=== PATIENT | female | born 1940 | race Caucasian/White ===

== ENCOUNTER 2017-09-09 16:03 | Outpatient (CLI) | payer MEDICARE, OTHER ==
[2017-09-09 16:31] LABS: Anion Gap 17 mmol/L (10-20); BUN (Urea Nitrogen) 13 mg/dL (9.8-20.1); Calc. Creatinine Clearance 0 mL/min (70-130); Calcium 9.1 mg/dL (7.8-10.44); Carbon Dioxide 22 mmol/L (23-31); Chloride 106 mmol/L (98-107); Estimated GFR-MDRD 50; Glucose 105 mg/dL (83-110); Potassium 4.3 mmol/L (3.5-5.1); Sodium 141 mmol/L (136-145)
[2017-09-09 16:33] LABS: #Basophils 0.2 thou/uL (0.0-0.2); #Eosinphils 0.1 thou/uL (0.0-0.7); #Lymphocytes 3.8 thou/uL (1.20-3.40); #Monocytes 1.2 thou/uL (0.11-0.59); #Neutrophils 14.1 thou/uL (1.40-6.50); %Basophils 0.9 % (0.0-1.0); %Eosinophils 0.4 % (0.0-10.0); %Lymphocytes 19.8 % (21.0-51.0); %Monocytes 6.2 % (0.0-10.0); %Neutrophils 72.6 % (42.0-75.0); Hemoglobin 14.1 g/dL (12.0-16.0); Mean Corpuscular HGB CONC 32.9 g/dL (32.0-36.0); Mean Corpuscular Hemoglobin 31.2 pg (27.0-31.0); Mean Corpuscular Volume 94.9 fl (81.0-99.0); Mean Platelet Volume 5.6 fL (7.4-10.4); Platelet Count 510 thou/uL (130-400); RBC Distribution Width 12.8 % (11.5-14.5); Red Blood Cell (RBC) Count 4.52 mill/uL (4.20-5.40); White Blood Cell (WBC) Count 19.3 thou/uL (4.8-10.8)
[2017-09-09 16:35] LABS: Bilirubin Negative (Negative); Blood, Urine Negative (Negative); Glucose, Urine (Dipstick) Negative (Negative); Leukocyte Negative (Negative); Nitrite Negative (Negative); Protein, Urine (Dipstick) Trace mg/dL (Neg-Trace); pH, Urine 7.5 (5.0-9.0)
[2017-09-09 16:36] LABS: Bacteria/HPF 1+ HPF (None Seen); Clarity Hazy (Clear); RBC/HPF 0-3 HPF (0-3); WBC/HPF 0-3 HPF (0-3)
== END 2017-09-09 16:04 | disposition home or self-care (01) ==
LOC: MADLABBHPM 16:03
PROVIDERS: ATTEND Family Medicine
DX: N18.9 Chronic kidney disease, unspecified (principal); I47.1 Supraventricular tachycardia; R35.0 Frequency of micturition
CPT/HCPCS: 36415; 80048; 81001; 85025; 87086

== ENCOUNTER 2017-09-09 20:36 | Emergency (ER) | payer MEDICARE, OTHER ==
[~2017-09-09 20:36] MED LIST: Sodium Chloride 0.9% 1,000 ML BAG ONE; Sodium Chloride 0.9% 100 ML BAG ONE; Sodium Chloride 0.9% 500 ML BAG ONE
[2017-09-09] MEDS ORDERED: Azithromycin 500 MG VIAL ONE (21:18)
[2017-09-09] MEDS ORDERED: methylPREDNISolone Sod Succ/PF 125 MG/2 ML VIAL ONE (21:19)
[2017-09-09] MEDS ORDERED: Acetaminophen 500 MG TAB ONE (21:19)
[2017-09-09 21:26] LABS: Anion Gap 18 mmol/L (10-20); BUN (Urea Nitrogen) 14 mg/dL (9.8-20.1); Calc. Creatinine Clearance 0 mL/min (70-130); Calcium 9.3 mg/dL (7.8-10.44); Carbon Dioxide 23 mmol/L (23-31); Chloride 103 mmol/L (98-107); Estimated GFR-MDRD 46; Glucose 96 mg/dL (83-110); Potassium 4.3 mmol/L (3.5-5.1); Sodium 140 mmol/L (136-145)
[2017-09-09 21:35] LABS: Troponin I 0.026 ng/mL (< 0.028)
[2017-09-09 21:41] LABS: Hemoglobin 14.2 g/dL (12.0-16.0); Mean Corpuscular HGB CONC 32.2 g/dL (32.0-36.0); Mean Corpuscular Hemoglobin 30.7 pg (27.0-31.0); Mean Corpuscular Volume 95.3 fl (81.0-99.0); Mean Platelet Volume 5.2 fL (7.4-10.4); Platelet Count 528 thou/uL (130-400); RBC Distribution Width 12.6 % (11.5-14.5); Red Blood Cell (RBC) Count 4.64 mill/uL (4.20-5.40); White Blood Cell (WBC) Count 21.8 thou/uL (4.8-10.8)
--- NOTE | 2017-09-09 21:41 | RAD ---
PORTABLE AP CHEST X-RAY 09/09/17 HISTORY: Dyspnea. COMPARISON: 12/27/15 FINDINGS: Again noted is blunting of the left lateral costophrenic angle similar to the prior study which may b e related to chronic pleural and parenchymal scarring. Lungs are otherwise clear. The cardiac silhoue tte and pulmonary vasculature are within normal limits. Multiple surgical clips again overlie the upp er abdomen. IMPRESSION: 1. No acute cardiopulmonary process. 2. Chronic changes left lung base. POS: [facility]
[2017-09-09 21:42] LABS: Band 4 % (5-11); Neutrophil 70 % (42-75)
[2017-09-09 21:43] LABS: Delete Auto Diff?? YES; Lymphocytes 20 % (21-51); Metamyelocyte 3 % (0-0); Monocytes 3 % (0-10)
[2017-09-09 21:44] LABS: D-Dimer Test 0.54 *mcg/mL (0.27-0.43); PLT Morphology Comment Appears Increased; PTT 27.8 SEC (22.9-36.1); Prothrombin Time 13.5 SEC (12.0-14.7)
== END 2017-09-09 22:40 | disposition short-term general hospital (02) ==
LOC: MADERS 20:36
DX: J44.1 Chronic obstructive pulmonary disease with (acute) exacerbation (principal); D72.829 Elevated white blood cell count, unspecified; I25.2 Old myocardial infarction; Z79.899 Other long term (current) drug therapy
CPT/HCPCS: 36415; 71045; 80048; 81001; 82553; 83605; 83880; 84484; 85025; 85379; 85384; 85610; 85730; 87040; 87086; 93005; 94760; 96361; 96374; 96375; J0456; J2930; J3370; J7050; J7620

== ENCOUNTER 2017-09-22 09:17 | Inpatient (IN) | payer MEDICARE, OTHER ==
[2017-09-22 13:20] LABS: Hemoglobin 13.6 g/dL (12.0-16.0); Mean Corpuscular Hemoglobin 31.7 pg (27.0-31.0); Mean Corpuscular Volume 95.9 fl (81.0-99.0); Mean Platelet Volume 5.8 fL (7.4-10.4); Platelet Count 433 thou/uL (130-400); RBC Distribution Width 12.6 % (11.5-14.5); Red Blood Cell (RBC) Count 4.23 mill/uL (4.20-5.40); White Blood Cell (WBC) Count 21.4 thou/uL (4.8-10.8)
[2017-09-22 13:26] LABS: ALT (SGPT) 14 U/L (8-55); AST (SGOT) 13 U/L (5-34); Albumin 3.6 g/dL (3.4-4.8); Alkaline Phosphatase 71 U/L (40-150); Anion Gap 15 mmol/L (10-20); BUN (Urea Nitrogen) 20 mg/dL (9.8-20.1); Bilirubin, Total 0.4 mg/dL (0.2-1.2); Calc. Creatinine Clearance 37 mL/min (70-130); Calcium 8.7 mg/dL (7.8-10.44); Carbon Dioxide 25 mmol/L (23-31); Chloride 104 mmol/L (98-107); Estimated GFR-MDRD 47; Globulin 2.4 g/dL (2.4-3.5); Glucose 106 mg/dL (83-110); Potassium 3.9 mmol/L (3.5-5.1); Sodium 140 mmol/L (136-145)
[2017-09-22 13:30] LABS: Anisocytosis SLIGHT = 6-15 cells (100X) (0-5/hpf); Eosinophils 1 % (0-10); Lymphocytes 34 % (21-51); MDiff Complete? YES; Manual Diff?? YES; Monocytes 6 % (0-10); Neutrophil 59 % (42-75)
[2017-09-22 13:31] LABS: PLT Morphology Comment Appears Increased
[2017-09-22] MEDS: Benzonatate 100 MG CAP PO SCH ×2 (14:24→21:09)
[2017-09-22] MEDS: Propranolol 10 MG TAB PO SCH (16:50)
[2017-09-22] MEDS ORDERED: Non-Formulary Item 1 EACH (Budesonide-Formoterol [Symbicort 160-4.5] 1 PUFF) INH SCH (21:00)
[2017-09-22] MEDS: Mometasone/Formoterol 60 PUFF AER INH SCH (21:05)
[2017-09-22] MEDS: Temazepam 15 MG CAP PO SCH (21:08)
[2017-09-22] MEDS: Amitriptyline HCl 25 MG TAB PO SCH (21:08)
[2017-09-23] MEDS: Propranolol 10 MG TAB PO SCH ×5 (00:28→23:45)
[2017-09-23] MEDS: Mometasone/Formoterol 60 PUFF AER INH SCH ×2 (08:11→23:45)
[2017-09-23] MEDS: Benzonatate 100 MG CAP PO SCH ×3 (08:11→21:19)
--- NOTE | 2017-09-23 09:41 | HP ---
DATE OF ADMISSION: 09/22/2017 ATTENDING DOCTOR: Debra Cain M.D. REASON FOR ADMISSION: General weakness/deconditioning post-hospitalization. HISTORY OF PRESENT ILLNESS: Ms. Murphy is a 77-year-old female with significant history of COPD and chronic sinus tachycardia. Patient was recently admitted to [facility] in [place] on 09/09/2017- for acute exacerbation of COPD. This was associated with acute respiratory failure, unspecified whether hypoxia or hypercapnic induced, sinus tachycardia improved with beta liu. Patient was also noted to have a low TSH with normal free T4 and leukocytosis during this admission. After patient was treated appropriately in the hospital, patient was sent home with continuous home O2 therapy, oral and inhaled steroids and oral antibiotic. Patient had completed the oral steroid and oral antibiotic at home. She presented back to the clinic today complaining of general weakness and deconditioning. Patient reports that she stayed with her who serves as primary strategies analyst at home. Reports that she has been having a hard time getting up and out of bed and moving around secondary to general weakness. She and her are having a hard time dealing with her condition at this point as her has chronic medical conditions himself and is unable to help her much She just had a home health evaluation including physical therapy few days ago. The patient states that it does not help much. The patient went to the clinic today requesting for possible placement for rehabilitation. Patient reports that she is still having intermittent shortness of breath and wheezing. She uses her oxygen continuously at home. She reported that she does not have a CPAP as previously stated in the clinic that the home oxygen concentrator that she saw is a different machine. She remains febrile free. No chest pain, chest heaviness, pain with breathing or bloody sputum. PAST MEDICAL HISTORY: 1. COPD, osteoporosis, hyperlipidemia, GERD, insomnia, depression, anxiety, history of DVT to the right leg with PE to the right lung. Pulmonary function tests showed restrictive disorder on 04/25/2011. Episodes of unresponsiveness, etiology TIA, stroke, seizure, 02/23/2007. 2. Postherpetic neuralgia. 3. Unspecified transient cerebral ischemia. 4. Edema. 5. Had consulted with shoe repair cobbler, Dr. Ghosh for EKG showing poor R-wave progression in anterior leads. MPI showed normal myocardial perfusion with no evidence of ischemia and normal wall motion 12/10/2015. 6. PAD status post bilateral iliac angiography with HAND PASTER and stent placement, claudication in her left lower extremity. 7. Hypoxemia, requiring home O2 therapy. PAST SURGICAL HISTORY: 1. Fracture of the right wrist requiring ORIF on 06/2011, colonoscopy 2003, appendectomy. 2. Hysterectomy. 3. 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 4. Surgery for GERD, postop she developed respiratory failure and was on respirator for several days. 5. Foot surgery. 6. Cholecystectomy. 7. Open hernia repair. FAMILY HISTORY: Father , 100 years old with COPD. Spouse alive, 84 years old. Mother at 95 years old with parkinsonism Alzheimer's. Sisters and healthy, 2 sons healthy. SOCIAL HISTORY: Patient is and lives with her . HABITS: Former smoker for more than 20 years. Have not been smoking for more than 20 years. Denies alcohol intake. Denies illicit drug use. ALLERGIES: 1. PENICILLIN, LEVAQUIN, DARVOCET, TESSALON PERLES, which upsets her stomach. Of note, patient is currently on TESSALON PERLES without side effects. 2. CEFTIN allergy. 3. LORAZEPAM, sleepwalking. HOSPITALIZATIONS: 1. COPD with acute exacerbation on 09/09/2017-09/15/2017 at [facility]. 2. COPD with acute exacerbation on 11/18/2009-11/21/2009. 3. Right lower lobe pneumonia with leukocytosis, probable leukemoid reaction on 02/09/2007-02/17/2007. 4. Chronic obstructive pulmonary disease with acute exacerbation on 08/18/2012. MEDICATIONS: Propranolol 10 mg p.o. q.6 hours, amitriptyline 50 mg p.o. at bedtime, temazepam 15 mg p.o. at bedtime, Combivent 20/100 mcg/act aerosol solution 1 puff inhalation 4 times a day as needed, benzonatate 100 mg p.o. t.i.d., Symbicort 160/4.5 mcg/act aerosol inhaler 2 puffs b.i.d., DuoNeb q.4 hours p.r.n., Diflucan 150 mg p.o. once x2. REVIEW OF SYSTEMS: Reports fatigue and general weakness. No fever, no chills, positive loss of appetite. HEENT: No cold symptoms, no ear pain, no sore throat. No sneezing. No acute hearing changes. CARDIOVASCULAR: Denies chest pain, paroxysmal nocturnal dyspnea or edema. Reports dyspnea on exertion and intermittent palpitations. RESPIRATORY: As per HPI. GASTROINTESTINAL: No nausea, vomiting, abdominal pain, diarrhea, rectal bleeding. GENITOURINARY: No dysuria, hematuria, frequency, urgency. SKIN: Reports tender vesicular lesions on the sacral region. Reports history of intermittent herpetic lesions and neuralgia. NEUROLOGIC: Denies confusion, new motor or sensory losses. PSYCHIATRIC: Reports insomnia, anxiety. No hallucinations. No depression. PHYSICAL EXAMINATION: VITAL SIGNS: Blood pressure 132/68, temperature 97.7, pulse 88, respirations 24 , O2 saturation 97% at 2 liters per nasal cannula. Weight 121 pounds, height 4 feet 9 inches. GENERAL: The patient is awake, alert. Chronically ill-looking, elderly, comfortable on exam, not in acute distress. HEENT: Normocephalic, atraumatic. PERRL, intact EOM. Nonicteric sclerae. Oral mucosa is moist. No oral lesions. NECK: Supple. No LAD, no JVD, no bruit. CHEST: Mildly tachypneic. Normal exertion. Nonlabored breathing. LUNGS: Good air movements. Prolonged expiratory phase. No wheezing. No rales , no crackles, no rhonchi. CARDIAC: RRR. Normal S1 and S2. No murmurs. ABDOMEN: Flat, soft, normoactive bowel sounds, nondistended, nontender. No rebound, no guarding. Negative CVA tenderness bilaterally. EXTREMITIES: No edema, no cyanosis. Negative Homans sign. Negative calf tenderness bilaterally. SKIN: Erythematous small papulovesicular lesions noted in confluence at the sacral region. Tender to touch with erythematous base. No pustular lesions. No induration. Good skin turgor, warm. PSYCHIATRIC: Appears calm with appropriate demeanor and affect. ASSESSMENT: 1. Physical deconditioning. 2. Chronic obstructive pulmonary disease. 3. Chronic respiratory failure, O2 requiring. 4. Sinus tachycardia, controlled with Betablocker, pending cardiac evaluation with Dr. Ghosh. 5. Unsteady gait. 6. Herpetic lesions at sacroiliac joint.New onset 7. Anxiety. 8. Chronic insomnia. PLAN: 1. The patient is admitted to Med/Surg for skilled rehabilitation. PT, OT for evaluation and treat for strengthening, balance training and muscle training. 2. We will continue current medications as modified per list. 3. Deep venous thrombosis prophylaxis with compression stockings. 4. Further recommendations depending on the hospital course. 5. Estimated length of stay; 2 to 3 weeks. CODE STATUS: ; patient reports DO NOT RESUSCITATE, DO NOT INTUBATE in the presence of her , who concurs to patient's wishes. DISPOSITION:home with with once appropriate. CUCOD
[2017-09-23] MEDS: Triamcinolone 0.1% Cream 15 GM TUBE TOP SCH ×2 (10:26→23:47)
[2017-09-23] MEDS: Acyclovir 200 mg Capsule PO SCH ×4 (12:14→23:51)
[2017-09-23] MEDS ORDERED: Fluconazole 100 MG TAB PO SCH (13:00)
[2017-09-23] MEDS: Acetaminophen 325 MG TAB PO PRN (19:06)
[2017-09-23] MEDS: Temazepam 15 MG CAP PO SCH (21:18)
[2017-09-23] MEDS: Amitriptyline HCl 25 MG TAB PO SCH (21:18)
[2017-09-24] MEDS: Propranolol 10 MG TAB PO SCH ×3 (05:49→17:35)
[2017-09-24] MEDS: Acyclovir 200 mg Capsule PO SCH ×4 (08:08→20:29)
[2017-09-24] MEDS: Triamcinolone 0.1% Cream 15 GM TUBE TOP SCH ×2 (08:09→20:35)
[2017-09-24] MEDS: Benzonatate 100 MG CAP PO SCH ×3 (08:09→20:30)
[2017-09-24] MEDS: Mometasone/Formoterol 60 PUFF AER INH SCH ×2 (08:09→20:31)
[2017-09-24] MEDS: Acetaminophen 325 MG TAB PO PRN (15:35)
[2017-09-24] MEDS ORDERED: Acetaminophen/Codeine 30-300mg Tablet PO PRN (16:30)
[2017-09-24] MEDS: Amitriptyline HCl 25 MG TAB PO SCH (20:29)
[2017-09-24] MEDS: Gabapentin 100 MG CAP PO SCH (20:30)
[2017-09-24] MEDS: Temazepam 15 MG CAP PO SCH (20:31)
[2017-09-24] MEDS: Acetaminophen/Codeine 30-300mg Tablet PO PRN (22:34)
[2017-09-25] MEDS: Propranolol 10 MG TAB PO SCH ×5 (00:30→23:57)
[2017-09-25] MEDS: Acyclovir 200 mg Capsule PO SCH ×6 (00:30→23:57)
[2017-09-25] MEDS: Acetaminophen/Codeine 30-300mg Tablet PO PRN ×4 (03:14→21:20)
[2017-09-25] MEDS: Mometasone/Formoterol 60 PUFF AER INH SCH ×2 (08:36→21:28)
[2017-09-25] MEDS: Benzonatate 100 MG CAP PO SCH ×3 (08:36→21:23)
[2017-09-25] MEDS: Triamcinolone 0.1% Cream 15 GM TUBE TOP SCH ×2 (08:37→21:28)
[2017-09-25] MEDS ORDERED: diphenhydrAMINE 25 MG CAP PO PRN (19:01)
[2017-09-25] MEDS: Amitriptyline HCl 25 MG TAB PO SCH (21:22)
[2017-09-25] MEDS: Gabapentin 100 MG CAP PO SCH (21:23)
[2017-09-25] MEDS: Temazepam 15 MG CAP PO SCH (21:24)
[2017-09-26] MEDS: Acetaminophen/Codeine 30-300mg Tablet PO PRN ×3 (01:16→15:45)
[2017-09-26] MEDS: Propranolol 10 MG TAB PO SCH ×3 (05:40→17:47)
[2017-09-26] MEDS: Acyclovir 200 mg Capsule PO SCH ×4 (08:32→20:31)
[2017-09-26] MEDS: Mometasone/Formoterol 60 PUFF AER INH SCH ×2 (08:33→20:31)
[2017-09-26] MEDS: Benzonatate 100 MG CAP PO SCH ×3 (08:33→20:25)
[2017-09-26] MEDS: Triamcinolone 0.1% Cream 15 GM TUBE TOP SCH ×2 (08:33→20:33)
[2017-09-26] MEDS: Temazepam 15 MG CAP PO SCH (20:24)
[2017-09-26] MEDS: Amitriptyline HCl 25 MG TAB PO SCH ×2 (20:25→20:26)
[2017-09-26] MEDS: Gabapentin 100 MG CAP PO SCH (20:26)
[2017-09-27] MEDS: Acyclovir 200 mg Capsule PO SCH ×5 (00:03→20:32)
[2017-09-27] MEDS: Propranolol 10 MG TAB PO SCH ×4 (00:03→17:43)
[2017-09-27] MEDS: Acetaminophen/Codeine 30-300mg Tablet PO PRN ×2 (00:10→15:17)
[2017-09-27] MEDS: Mometasone/Formoterol 60 PUFF AER INH SCH ×2 (09:27→20:32)
[2017-09-27] MEDS: Benzonatate 100 MG CAP PO SCH ×3 (09:29→20:33)
[2017-09-27] MEDS: Triamcinolone 0.1% Cream 15 GM TUBE TOP SCH ×2 (09:29→20:34)
[2017-09-27] MEDS: Acetaminophen 325 MG TAB PO PRN (17:46)
[2017-09-27] MEDS: Gabapentin 100 MG CAP PO SCH (20:32)
[2017-09-27] MEDS: Temazepam 15 MG CAP PO SCH (20:32)
[2017-09-28] MEDS: Propranolol 10 MG TAB PO SCH ×5 (00:26→23:40)
[2017-09-28] MEDS: Acyclovir 200 mg Capsule PO SCH ×6 (00:26→23:40)
[2017-09-28] MEDS: Mometasone/Formoterol 60 PUFF AER INH SCH ×2 (08:24→20:19)
[2017-09-28] MEDS: Benzonatate 100 MG CAP PO SCH ×3 (08:25→20:22)
[2017-09-28] MEDS: Triamcinolone 0.1% Cream 15 GM TUBE TOP SCH ×2 (08:26→20:22)
[2017-09-28] MEDS: Gabapentin 100 MG CAP PO SCH (20:16)
[2017-09-28] MEDS: Amitriptyline HCl 25 MG TAB PO SCH (20:16)
[2017-09-28] MEDS: Temazepam 15 MG CAP PO SCH (20:18)
[2017-09-28 21:13] VITALS: BP 146/66
[2017-09-29] MEDS: Propranolol 10 MG TAB PO SCH (05:44)
[2017-09-29] MEDS: Acyclovir 200 mg Capsule PO SCH (08:07)
[2017-09-29] MEDS: Benzonatate 100 MG CAP PO SCH (08:08)
[2017-09-29] MEDS: Mometasone/Formoterol 60 PUFF AER INH SCH (08:09)
[2017-09-29] MEDS: Triamcinolone 0.1% Cream 15 GM TUBE TOP SCH (08:11)
[2017-09-29 10:34] VITALS: TEMP 98.9
--- NOTE | 2017-09-29 21:40 | DIS ---
DATE OF ADMISSION: 09/22/2017 DATE OF DISCHARGE: 09/29/2017 ATTENDING PHYSICIAN: Debra Cain MD REASON FOR ADMISSION: General weakness, deconditioning post-hospitalization. DIAGNOSES: 1. Physical deconditioning. 2. Chronic obstructive pulmonary disease. 3. Chronic respiratory failure, O2 requiring. 4. Sinus tachycardia, controlled with beta liu. 5. Unsteady gait, improved with therapy. 6. Herpetic lesion in sacroiliac joint, improving. 7. Postherpetic neuralgia. 8. Anxiety. 9. Chronic insomnia. 10. History of abnormal TSH with normal Free T4, pending further outpatient evaluation. CONDITION ON DISCHARGE: Stable. DISPOSITION: Home with . HOME MEDICATIONS: 1. Gabapentin 100 mg p.o. at bedtime. 2. Triamcinolone cream b.i.d. to herpetic lesion in sacral area. 3. Temazepam 15 mg p.o. at bedtime. 4. Combivent 20/100 mcg/act aerosol solution 1 puff 4 times a day as needed. 5. Symbicort 160/4.5 mcg aerosol inhaler 2 puffs b.i.d. 6. DuoNeb q.4 hours p.r.n. 7. Amitriptyline 50 mg p.o. at bedtime. 8. Propranolol 10 mg p.o. q.6 hours. DISCHARGE INSTRUCTIONS: 1. Diet: Regular, as tolerated. 2. Activity: To walk with rolling walker at all times. 3. Follow up with Dr. Cain in 1-2 weeks, sooner with concern. 4. Follow up with Dr. Ghosh for sinus tachycardia on 10/30/2017 as previously scheduled. 5. Follow up with pocket maker, Dr. Kovacs, on 10/22/2017 or as previously scheduled for pulmonary care. 6. Previous home health to resume services for senior living, PT, OT to evaluate and treat. HISTORY OF PRESENT ILLNESS AND HOSPITAL COURSE: Ms. Murphy is a very pleasant 77-year-old female with significant history of COPD and chronic sinus tachycardia deemed to be secondary to COPD. The patient was recently admitted to [facility] from 09/09/2017 to 09/15/2017 for acute exacerbation of COPD. This was associated with acute respiratory failure, whether hypoxia or hypercapnic induced, O2 requiring; sinus tachycardia improved with beta liu. The patient went home with oral steroids, oral antibiotic, inhaled steroid, and propranolol. The patient reports that she has been having a hard time dealing with her condition at home as she was generally weak and unable to get up and help herself. She also reports very unsteady gait , now using rolling walker to ambulate. Her is the primary caregiver at home and unable to give the appropriate care as she requires higher level of care. Post-hospitalization,the patient accompanied by went to the clinic asking for rehabilitation The patient agreed to stay in [place] swing bed, thus admitted subsequently. The patient did well with rehabilitation. She was walking 400 feet using the rolling walker prior to discharge. The patient's rehabilitation course was complicated with herpetic lesion noted on the day of admission. Papulovesicular rash was noted in confluence at the sacral region. This was complicated with post-herpetic neuralgia. Pain was reported shooting from the sacral area where the lesions are located radiating to the right medial thigh. Pain is responsive to gabapentin and prn Tylenol#3. On 09/29/2017, the patient reported that she is doing a lot better. Neuralgia was controlled with med. She feels stronger and comfortable to go back home. I spoke to spouse who serves as the primary menagerie caretaker, who is in agreement to the patient's request. Thus, the patient was discharged on 2017 with the recommendation to continue therapy with previous home health. Vital signs prior to discharge: Blood pressure 146/66, temperature 98.9, pulse 86, respirations rate 18, O2 saturation 97% at 2 liters per nasal cannula, weight 121 pounds, height 4 feet 9 inches. Time spent on this discharge in assessing the patient and coordinating care, 32 minutes. KATE
== END 2017-09-29 12:00 | disposition home or self-care (01) | DRG 948 ==
LOC: MADMS 09:17
PROVIDERS: ADMIT Family Medicine; ATTEND Family Medicine
DX: R53.1 Weakness (principal); J96.11 Chronic respiratory failure with hypoxia; Z99.81 Dependence on supplemental oxygen; B02.29 Other postherpetic nervous system involvement; J44.9 Chronic obstructive pulmonary disease, unspecified; R00.0 Tachycardia, unspecified; M81.0 Age-related osteoporosis without current pathological fracture; E78.5 Hyperlipidemia, unspecified; K21.9 Gastro-esophageal reflux disease without esophagitis; G47.00 Insomnia, unspecified; F32.9 Major depressive disorder, single episode, unspecified; F41.9 Anxiety disorder, unspecified; Z86.718 Personal history of other venous thrombosis and embolism; Z86.711 Personal history of pulmonary embolism; Z86.73 Personal history of transient ischemic attack (TIA), and cerebral infarction without residual deficits; Z87.891 Personal history of nicotine dependence; Z88.1 Allergy status to other antibiotic agents; Z88.5 Allergy status to narcotic agent; Z88.0 Allergy status to penicillin; R26.81 Unsteadiness on feet; Z66 Do not resuscitate
CPT/HCPCS: 36415; 80053; 85025; 94640; 94664; G8978-GP-CJ; G8979-GP-CI; G8996-GN-CI; G8997-GN-CI; G8998-GN-CI; J7620

== ENCOUNTER 2017-11-12 17:31 | Outpatient (CLI) | payer MEDICARE, OTHER ==
[2017-11-12 23:40] LABS: Free T4 (Free Thyroxine) 0.87 ng/dL (0.70-1.48)
== END 2017-11-12 17:32 | disposition home or self-care (01) ==
LOC: MADLAB 17:31
PROVIDERS: ATTEND Family Medicine
DX: R79.89 Other specified abnormal findings of blood chemistry (principal)
CPT/HCPCS: 84439; 84443

== ENCOUNTER 2018-02-05 09:39 | Emergency (ER) | payer MEDICARE, OTHER ==
[~2018-02-05 09:39] MED LIST changes: -Sodium Chloride 0.9% 100 ML BAG ONE; -Sodium Chloride 0.9% 500 ML BAG ONE
[2018-02-05] MEDS ORDERED: Azithromycin 500 MG VIAL ONE (11:09)
[2018-02-05] MEDS ORDERED: Dexamethasone 10 MG/ML VIAL ONE (11:09)
[2018-02-05] MEDS ORDERED: methylPREDNISolone Sod Succ/PF 125 MG/2 ML VIAL ONE (11:09)
[2018-02-05] MEDS ORDERED: Ondansetron ODT 4 MG TAB ONE (11:09)
[2018-02-05] MEDS ORDERED: Clindamycin/D5W 600 mg/50 ml Premix Bag ONE (11:09)
[2018-02-05] MEDS ORDERED: Ketorolac Tromethamine 30 MG/ML VIAL ONE (11:09)
[2018-02-05 11:21] LABS: Band 2 % (5-11); Hemoglobin 12.6 g/dL (12.0-16.0); Lymphocytes 19 % (21-51); MDiff Complete? YES; Mean Corpuscular Hemoglobin 29.3 pg (27.0-31.0); Mean Corpuscular Volume 91.6 fL (78.0-98.0); Mean Platelet Volume 6.2 fL (7.4-10.4); Monocytes 5 % (0-10); Neutrophil 74 % (42-75); PLT Morphology Comment Appears Increased; Platelet Count 418 thou/uL (130-400); RBC Distribution Width 12.7 % (11.5-14.5); Red Blood Cell (RBC) Count 4.29 mill/uL (4.20-5.40); White Blood Cell (WBC) Count 32.4 thou/uL (4.8-10.8)
[2018-02-05 11:23] LABS: ALT (SGPT) 16 U/L (8-55); AST (SGOT) 16 U/L (5-34); Albumin 3.7 g/dL (3.4-4.8); Alkaline Phosphatase 123 U/L (40-150); Anion Gap 19 mmol/L (10-20); BUN (Urea Nitrogen) 34 mg/dL (9.8-20.1); Bilirubin, Total 0.4 mg/dL (0.2-1.2); CK (CPK) 155 U/L (29-168); Calc. Creatinine Clearance 0 mL/min (70-130); Calcium 9.3 mg/dL (7.8-10.44); Carbon Dioxide 20 mmol/L (23-31); Chloride 102 mmol/L (98-107); Estimated GFR-MDRD 49; Globulin 3.7 g/dL (2.4-3.5); Glucose 135 mg/dL (83-110); Potassium 4.3 mmol/L (3.5-5.1); Protein, Total 7.4 g/dL (6.0-8.3); Sodium 137 mmol/L (136-145)
[2018-02-05 11:28] LABS: CKMB 1.4 ng/mL (0-6.6); Troponin I Less than 0.010 ng/mL (< 0.028)
[2018-02-05 11:37] LABS: PTT 24.6 SEC (22.9-36.1); Prothrombin Time 13.4 SEC (12.0-14.7)
[2018-02-05 11:45] LABS: D-Dimer Test 1.48 *mcg/mL (0.27-0.43)
--- NOTE | 2018-02-05 12:30 | RAD ---
UPRIGHT PORTABLE CHEST 1 VIEW: HISTORY: A 77-year-old female with a history of shortness of breath. COMPARISON: 11/11/17. FINDINGS: There is rotation to the left. Monitor leads overlie the chest. Overall stable-appearing increased linear and interstitial markings and blunting of the left costophrenic angle. Postsurgical changes i n the left upper quadrant. IMPRESSION: Stable chest with stable blunting of the left costophrenic angle. Rotation to the left. Atheroscler osis of the aorta. No confluent pneumonia or overt edema or other acute process. POS: [facility]
[2018-02-05 13:02] LABS: Bilirubin Small (Negative); Blood, Urine Negative (Negative); Clarity Clear (Clear); Glucose, Urine (Dipstick) Negative (Negative); Leukocyte Negative (Negative); Nitrite Negative (Negative); Protein, Urine (Dipstick) 30 mg/dL (Neg-Trace); pH, Urine 5.5 (5.0-9.0)
[2018-02-05 13:13] LABS: Bacteria/HPF 1+ HPF (None Seen); RBC/HPF 0-3 HPF (0-3); WBC/HPF 0-3 HPF (0-3)
[2018-02-05 13:14] LABS: Crystals/HPF 1+ URIC ACID HPF (Negative); Other Casts/LPF >50 MIXED CASTS LPF (0-3 Hyaline)
--- NOTE | 2018-02-05 13:20 | RAD ---
THREE VIEWS OF THE LEFT RIBS: INDICATION: Chest pain from cough. FINDINGS: There is mild cardiomegaly. There is interstitial prominence likely related to underlying emphysema. There are surgical clips underlying the left hemidiaphragm. No pneumothorax or contusion is eviden t. No definite displaced left-sided rib fractures are evident. IMPRESSION: No displaced left-sided rib fracture. POS: [facility]
== END 2018-02-05 15:17 | disposition short-term general hospital (02) ==
LOC: MADERS 09:39
DX: J06.9 Acute upper respiratory infection, unspecified (principal); R74.9 Abnormal serum enzyme level, unspecified; D72.829 Elevated white blood cell count, unspecified; I25.2 Old myocardial infarction; J44.9 Chronic obstructive pulmonary disease, unspecified; F41.9 Anxiety disorder, unspecified; Z87.891 Personal history of nicotine dependence; Z79.899 Other long term (current) drug therapy
CPT/HCPCS: 36415; 71045; 80053; 81001; 82553; 83605; 83880; 84484; 85025; 85379; 85610; 85730; 87040; 87086; 93005; 94760; 96361; 96365; 96366; 96367; 96375; J0456; J1100; J1885; J2930; J3490; J7050; J7620; Q0162

== ENCOUNTER 2018-02-13 12:54 | Emergency (ER) | payer MEDICARE, OTHER ==
[2018-02-13] MEDS ORDERED: Lorazepam 1 MG TAB ONE (14:21)
== END 2018-02-13 14:55 | disposition home or self-care (01) ==
LOC: MADERS 12:54
DX: F43.0 Acute stress reaction (principal); I25.2 Old myocardial infarction; J44.9 Chronic obstructive pulmonary disease, unspecified; F41.9 Anxiety disorder, unspecified; Z87.891 Personal history of nicotine dependence; Z79.899 Other long term (current) drug therapy
CPT/HCPCS: 99283

== ENCOUNTER 2018-10-21 16:32 | Emergency (ER) | payer MEDICARE, OTHER ==
[2018-10-21 17:14] LABS: #Basophils 0.1 thou/uL (0.0-0.2); #Eosinphils 0.4 thou/uL (0.0-0.7); #Lymphocytes 4.2 thou/uL (1.20-3.40); #Monocytes 0.9 thou/uL (0.11-0.59); #Neutrophils 7.4 thou/uL (1.40-6.50); %Basophils 1.1 % (0.0-1.0); %Eosinophils 3.2 % (0.0-10.0); %Monocytes 6.7 % (0.0-10.0); Hemoglobin 13.1 g/dL (12.0-16.0); Mean Corpuscular Hemoglobin 29.6 pg (27.0-31.0); Mean Corpuscular Volume 92.4 fL (78.0-98.0); Mean Platelet Volume 5.5 fL (7.4-10.4); Platelet Count 504 thou/uL (130-400); RBC Distribution Width 12.7 % (11.5-14.5); Red Blood Cell (RBC) Count 4.42 mill/uL (4.20-5.40)
--- NOTE | 2018-10-21 17:26 | RAD ---
FRadiograph chest one view: 10/21/2018 5:19 PM HISTORY: 78-year-old female with chest pain COMPARISON: 05/26/2018 FINDINGS: Again noted are the clusters of surgical clips in the upper abdomen. Again noted is the blunting of t he left lateral costophrenic angle which may represent focal scar. No cardiomegaly, pulmonary edema, new consolidation, or pneumothorax. No interval change overall. IMPRESSION: 1. Chronic changes at the left lateral costophrenic angle. 2. No acute cardiopulmonary findings
[2018-10-21 17:28] LABS: ALT (SGPT) 10 U/L (8-55); AST (SGOT) 20 U/L (5-34); Albumin 3.9 g/dL (3.4-4.8); Alkaline Phosphatase 115 U/L (40-150); Anion Gap 15 mmol/L (10-20); BUN (Urea Nitrogen) 21 mg/dL (9.8-20.1); Bilirubin, Total 0.5 mg/dL (0.2-1.2); CK (CPK) 148 U/L (29-168); Calc. Creatinine Clearance 0 mL/min (70-130); Calcium 9.1 mg/dL (7.8-10.44); Carbon Dioxide 25 mmol/L (23-31); Chloride 105 mmol/L (98-107); Estimated GFR-MDRD 46; Globulin 3.2 g/dL (2.4-3.5); Glucose 86 mg/dL (83-110); Potassium 4.7 mmol/L (3.5-5.1); Protein, Total 7.1 g/dL (6.0-8.3); Sodium 140 mmol/L (136-145)
[2018-10-21 17:32] LABS: PTT 25.4 SEC (22.9-36.1); Prothrombin Time 12.9 SEC (12.0-14.7)
[2018-10-21 17:33] LABS: D-Dimer Test 0.62 *mcg/mL (0.27-0.43)
== END 2018-10-21 18:46 | disposition short-term general hospital (02) ==
LOC: MADERS 16:32
DX: R07.89 Other chest pain (principal); R79.89 Other specified abnormal findings of blood chemistry; B02.9 Zoster without complications; I25.2 Old myocardial infarction; J44.9 Chronic obstructive pulmonary disease, unspecified; F41.9 Anxiety disorder, unspecified; Z79.899 Other long term (current) drug therapy
CPT/HCPCS: 71045; 80053; 82550; 83880; 84484; 85025; 85379; 85610; 85730; 93005; 94760

== ENCOUNTER 2019-01-15 16:02 | Outpatient (CLI) | payer MEDICARE, OTHER ==
--- NOTE | 2019-01-18 07:51 | CT ---
CT Brain WO Con HISTORY: Syncope COMPARISON: None. FINDINGS: The ventricular and cisternal system shows mild atrophy. Decreased attenuation to the periv entricular white matter is consistent with chronic white matter change. There are no signs of intracerebral hemorrhage or extra-axial fluid collections. Mastoid air cells and visualized sinuses are clear. IMPRESSION: No acute intracranial abnormalities.
== END 2019-01-15 16:03 | disposition home or self-care (01) ==
LOC: MADRAD 16:02
PROVIDERS: ATTEND Family Medicine
DX: S00.03XD Contusion of scalp, subsequent encounter (principal); R42 Dizziness and giddiness; R51 Headache; W19.XXXA Unspecified fall, initial encounter
CPT/HCPCS: 70450

== ENCOUNTER 2019-06-11 12:12 | Emergency (ER) | payer MEDICARE, OTHER ==
[2019-06-11 13:00] LABS: #Basophils 0.1 thou/uL (0.0-0.2); #Eosinphils 0.2 thou/uL (0.0-0.7); #Lymphocytes 3.6 thou/uL (1.20-3.40); #Neutrophils 7.2 thou/uL (1.40-6.50); %Basophils 0.8 % (0.0-1.0); %Eosinophils 1.9 % (0.0-10.0); %Lymphocytes 29.8 % (21.0-51.0); %Neutrophils 59.5 % (42.0-75.0); Hemoglobin 11.8 g/dL (12.0-16.0); Mean Corpuscular Hemoglobin 30.3 pg (27.0-31.0); Mean Corpuscular Volume 97.9 fL (78.0-98.0); Mean Platelet Volume 6.9 fL (7.4-10.4); Platelet Count 352 thou/uL (130-400); RBC Distribution Width 12.4 % (11.5-14.5); Red Blood Cell (RBC) Count 3.89 mill/uL (4.20-5.40)
[2019-06-11] MEDS ORDERED: Sodium Chloride 0.9% 500 ML ONE ×2 (13:05→15:18)
[2019-06-11 13:19] LABS: ALT (SGPT) 10 U/L (8-55); AST (SGOT) 28 U/L (5-34); Albumin 3.6 g/dL (3.4-4.8); Alkaline Phosphatase 54 U/L (40-110); Anion Gap 14 mmol/L (10-20); BUN (Urea Nitrogen) 18 mg/dL (9.8-20.1); Bilirubin, Total 0.3 mg/dL (0.2-1.2); CK (CPK) 1235 U/L (29-168); Calc. Creatinine Clearance 0 mL/min (70-130); Calcium 8.3 mg/dL (7.8-10.44); Carbon Dioxide 29 mmol/L (23-31); Chloride 101 mmol/L (98-107); Estimated GFR-MDRD 44; Globulin 2.8 g/dL (2.4-3.5); Glucose 81 mg/dL (83-110); Potassium 4.2 mmol/L (3.5-5.1); Protein, Total 6.4 g/dL (6.0-8.3); Sodium 140 mmol/L (136-145)
--- NOTE | 2019-06-11 13:43 | RAD ---
SINGLE VIEW CHEST: Date: 06/11/19 COMPARISON: 10/21/18. HISTORY: Orthostatic hypotension and cough. FINDINGS: Single view of the chest shows a normal sized cardiomediastinal silhouette. There is no evidence of c onsolidation, mass, or pleural effusion. The bones are unremarkable. IMPRESSION: No evidence of acute cardiopulmonary disease. POS: [facility]
[2019-06-11 14:17] LABS: Bilirubin Negative (Negative); Blood, Urine Negative (Negative); Clarity Clear (Clear); Glucose, Urine (Dipstick) Negative (Negative); Leukocyte Negative (Negative); Nitrite Negative (Negative); Protein, Urine (Dipstick) Negative (Neg-Trace); Urobilinogen 0.2 mg/dL (Less than 2)
== END 2019-06-11 16:37 | disposition home or self-care (01) ==
LOC: MADERS 12:12
DX: I95.1 Orthostatic hypotension (principal); E86.0 Dehydration; I25.2 Old myocardial infarction; J44.9 Chronic obstructive pulmonary disease, unspecified; F41.9 Anxiety disorder, unspecified; Z87.891 Personal history of nicotine dependence; Z79.899 Other long term (current) drug therapy; Z79.51 Long term (current) use of inhaled steroids; Z79.01 Long term (current) use of anticoagulants
CPT/HCPCS: 71045; 80053; 81003; 82550; 83880; 84443; 84484; 85025; 93005; 94760; 96360; 96361; J7050

== ENCOUNTER 2019-11-08 21:33 | Outpatient (CLI) | payer MEDICARE, OTHER ==
--- NOTE | 2019-11-08 22:06 | RAD ---
Left shoulder 3 views HISTORY: Left shoulder pain. FINDINGS: Acromioclavicular and glenohumeral alignment are maintained. Mild osteophytosis. No acute f racture, dislocation, or aggressive osseous erosions. Calcified granulomata partially visualized within the left lung. There is calcification at the aortic arch. IMPRESSION : Mild osteoarthritic changes left shoulder. No acute osseous abnormalities are demonstrated. Atherosclerosis.
--- NOTE | 2019-11-08 22:17 | RAD ---
Left hip 2 views HISTORY: Fall. Injury. FINDINGS: Joint spaces preserved. Minimal osteophytosis. Femoral head contour is maintained. No acute fracture or dislocation. IMPRESSION : No acute osseous abnormalities are demonstrated.
--- NOTE | 2019-11-08 22:26 | RAD ---
Lumbar spine 3 views HISTORY: Fall. Injury. FINDINGS: There are 5 lumbar type vertebrae. Pedicles are intact. Vertebral body heights and alignmen t are maintained. Osteophytosis throughout the lower facets. No acute fracture or dislocation are apparent. There are mild degenerative changes of the hips. Metal lic stent overlying the aortic bifurcation. Metallic clips over the upper abdomen. IMPRESSION : Arthritic changes of the lower lumbar spine. No evidence of compression fracture.
== END 2019-11-08 21:34 | disposition home or self-care (01) ==
LOC: MADLABBHPM 21:33
PROVIDERS: ATTEND Family Medicine
DX: M25.552 Pain in left hip (principal); M25.512 Pain in left shoulder; W18.30XA Fall on same level, unspecified, initial encounter; M46.96 Unspecified inflammatory spondylopathy, lumbar region; M19.012 Primary osteoarthritis, left shoulder; I70.0 Atherosclerosis of aorta
CPT/HCPCS: 72100

== ENCOUNTER 2020-10-26 15:36 | Outpatient (CLI) | payer MEDICARE, OTHER | END 2020-10-26 15:37 | disposition home or self-care (01) | LOC: MADRAD 15:36 | PROVIDERS: ATTEND Family Medicine | DX: J44.1 Chronic obstructive pulmonary disease with (acute) exacerbation (principal) | CPT/HCPCS: 71046 ==

== ENCOUNTER 2020-12-26 19:31 | Emergency (ER) | payer MEDICARE, OTHER ==
[2020-12-26 20:37] LABS: #Basophils 0.2 thou/uL (0.0-0.2); #Eosinphils 0.1 thou/uL (0.0-0.7); #Lymphocytes 3.4 thou/uL (1.20-3.40); #Monocytes 1.7 thou/uL (0.11-0.59); #Neutrophils 11.3 thou/uL (1.40-6.50); %Eosinophils 0.5 % (0.0-10.0); %Lymphocytes 20.5 % (21.0-51.0); %Monocytes 10.1 % (0.0-10.0); %Neutrophils 67.9 % (42.0-75.0); Hemoglobin 12.2 g/dL (12.0-16.0); Mean Corpuscular HGB CONC 32.4 g/dL (32.0-36.0); Mean Corpuscular Volume 98.6 fL (78.0-98.0); Mean Platelet Volume 7.7 fL (7.4-10.4); Platelet Count 310 thou/uL (130-400); RBC Distribution Width 13.2 % (11.5-14.5); Red Blood Cell (RBC) Count 3.81 mill/uL (4.20-5.40); White Blood Cell (WBC) Count 16.7 thou/uL (4.8-10.8)
[2020-12-26 20:39] LABS: Prothrombin Time 13.1 sec (12.0-14.7)
[2020-12-26 20:54] LABS: ALT (SGPT) 8 U/L (8-55); AST (SGOT) 11 U/L (5-34); Albumin 3.2 g/dL (3.4-4.8); Alkaline Phosphatase 56 U/L (40-110); Anion Gap 13 mmol/L (10-20); BUN (Urea Nitrogen) 17 mg/dL (9.8-20.1); Bilirubin, Total 0.5 mg/dL (0.2-1.2); Calc. Creatinine Clearance 0 mL/min (70-130); Calcium 7.8 mg/dL (7.8-10.44); Carbon Dioxide 22 mmol/L (23-31); Chloride 109 mmol/L (98-107); Globulin 2.2 g/dL (2.4-3.5); Glucose 124 mg/dL (83-110); Potassium 4.1 mmol/L (3.5-5.1); Protein, Total 5.4 g/dL (5.8-8.1); Sodium 140 mmol/L (136-145)
[2020-12-26] MEDS ORDERED: Boostrix 0.5 ML (Tdap) VIAL ONE (21:03)
[2020-12-26] MEDS ORDERED: Lidocaine 4% Cream 5 GM TUBE w/ Tegaderm ONE (21:03)
[2020-12-26] MEDS ORDERED: Morphine 4 MG/ML VIAL ONE (21:03)
[2020-12-26] MEDS ORDERED: Acetaminophen 325 MG TAB ONE (22:15)
== END 2020-12-27 00:02 | disposition short-term general hospital (02) ==
LOC: MADERS 19:31
DX: R55 Syncope and collapse (principal); T82.897A Other specified complication of cardiac prosthetic devices, implants and grafts, initial encounter; S92.331A Displaced fracture of third metatarsal bone, right foot, initial encounter for closed fracture; S61.411A Laceration without foreign body of right hand, initial encounter; S90.31XA Contusion of right foot, initial encounter; M54.2 Cervicalgia; R51.9 Headache, unspecified; I25.2 Old myocardial infarction; J44.9 Chronic obstructive pulmonary disease, unspecified; Z87.891 Personal history of nicotine dependence; Z79.899 Other long term (current) drug therapy; W19.XXXA Unspecified fall, initial encounter
CPT/HCPCS: 70450; 71045; 72125; 80053; 84484; 85025; 85610; 90471; 90715; 93005; 96374; J2270

== ENCOUNTER 2021-01-09 15:37 | Outpatient (CLI) | payer MEDICARE, OTHER | END 2021-01-09 15:38 | disposition home or self-care (01) | LOC: MADRAD 15:37 | PROVIDERS: ATTEND Family Medicine | DX: S92.334A Nondisplaced fracture of third metatarsal bone, right foot, initial encounter for closed fracture (principal); S92.331D Displaced fracture of third metatarsal bone, right foot, subsequent encounter for fracture with routine healing; M79.89 Other specified soft tissue disorders; M89.9 Disorder of bone, unspecified ==

== ENCOUNTER 2021-01-29 10:45 | Outpatient (CLI) | payer MEDICARE, OTHER | END 2021-01-29 10:46 | disposition home or self-care (01) | LOC: MADRAD 10:45 | PROVIDERS: ATTEND Family Medicine | DX: S92.334D Nondisplaced fracture of third metatarsal bone, right foot, subsequent encounter for fracture with routine healing (principal) ==

== ENCOUNTER 2021-02-11 10:13 | Emergency (ER) | payer MEDICARE, OTHER ==
[~2021-02-11 10:13] MED LIST changes: -Sodium Chloride 0.9% 1,000 ML BAG ONE; +Sodium Chloride 0.9% 100 ML BAG ONE
[2021-02-11] MEDS ORDERED: Iopamidol 370 76% 125 ML VIAL FS ONE (10:14)
[2021-02-11] MEDS ORDERED: methylPREDNISolone Sod Succ/PF 125 MG/2 ML VIAL ONE (10:42)
[2021-02-11 10:45] LABS: #Basophils 0.2 thou/uL (0.0-0.2); #Eosinphils 0.1 thou/uL (0.0-0.7); #Lymphocytes 4.2 thou/uL (1.20-3.40); #Neutrophils 10.3 thou/uL (1.40-6.50); %Basophils 1.1 % (0.0-1.0); %Eosinophils 0.6 % (0.0-10.0); %Lymphocytes 26.3 % (21.0-51.0); %Monocytes 6.6 % (0.0-10.0); %Neutrophils 65.4 % (42.0-75.0); Hemoglobin 12.6 g/dL (12.0-16.0); Mean Corpuscular HGB CONC 32.8 g/dL (32.0-36.0); Mean Corpuscular Hemoglobin 33.1 pg (27.0-31.0); Mean Corpuscular Volume 101.1 fL (78.0-98.0); Mean Platelet Volume 7.2 fL (7.4-10.4); Platelet Count 380 thou/uL (130-400); RBC Distribution Width 13.5 % (11.5-14.5); White Blood Cell (WBC) Count 15.8 thou/uL (4.8-10.8)
[2021-02-11 10:59] LABS: ALT (SGPT) 8 U/L (8-55); AST (SGOT) 19 U/L (5-34); Albumin 3.7 g/dL (3.4-4.8); Alkaline Phosphatase 71 U/L (40-110); Anion Gap 13 mmol/L (10-20); BUN (Urea Nitrogen) 15 mg/dL (9.8-20.1); Bilirubin, Total 0.3 mg/dL (0.2-1.2); Calc. Creatinine Clearance 0 mL/min (70-130); Calcium 8.6 mg/dL (7.8-10.44); Carbon Dioxide 26 mmol/L (23-31); Chloride 105 mmol/L (98-107); Globulin 2.9 g/dL (2.4-3.5); Glucose 98 mg/dL (83-110); Potassium 4.5 mmol/L (3.5-5.1); Protein, Total 6.6 g/dL (5.8-8.1); Sodium 139 mmol/L (136-145)
[2021-02-11] MEDS ORDERED: Sodium Chloride 0.9% 1,000 ML ONE (11:47)
== END 2021-02-11 13:40 | disposition home or self-care (01) ==
LOC: MADERS 10:13
DX: B02.9 Zoster without complications (principal); R06.02 Shortness of breath; R07.9 Chest pain, unspecified; I25.2 Old myocardial infarction; I73.9 Peripheral vascular disease, unspecified; J44.9 Chronic obstructive pulmonary disease, unspecified; Z79.899 Other long term (current) drug therapy
CPT/HCPCS: 71046; 71275; 80053; 83880; 84484; 85025; 85379; 93005; 94760; 96374; J2930; J3490; J7050; J7620; Q9967

== ENCOUNTER 2021-07-05 16:46 | Emergency (ER) | payer MEDICARE, OTHER ==
[2021-07-05] MEDS ORDERED: methylPREDNISolone Sod Succ/PF 125 MG/2 ML VIAL ONE (17:26)
[2021-07-05] MEDS ORDERED: Albuterol Sulfate 2.5 mg/3 ml Neb ONE (17:26)
[2021-07-05] MEDS ORDERED: Ipratropium Bromide 2.5 ml Neb ONE (17:26)
[2021-07-05 17:51] LABS: #Basophils 0.1 thou/uL (0.0-0.2); #Eosinphils 0.1 thou/uL (0.0-0.7); #Lymphocytes 4.1 thou/uL (1.20-3.40); #Monocytes 1.3 thou/uL (0.11-0.59); #Neutrophils 11.7 thou/uL (1.40-6.50); %Basophils 0.7 % (0.0-1.0); %Eosinophils 0.5 % (0.0-10.0); %Lymphocytes 23.7 % (21.0-51.0); %Monocytes 7.5 % (0.0-10.0); %Neutrophils 67.5 % (42.0-75.0); Mean Corpuscular HGB CONC 33.4 g/dL (32.0-36.0); Mean Corpuscular Hemoglobin 32.3 pg (27.0-31.0); Mean Corpuscular Volume 96.5 fL (78.0-98.0); Mean Platelet Volume 6.6 fL (7.4-10.4); Platelet Count 409 thou/uL (130-400); RBC Distribution Width 11.8 % (11.5-14.5); Red Blood Cell (RBC) Count 3.72 mill/uL (4.20-5.40); White Blood Cell (WBC) Count 17.3 thou/uL (4.8-10.8)
[2021-07-05 18:10] LABS: ALT (SGPT) 10 U/L (8-55); AST (SGOT) 16 U/L (5-34); Albumin 3.3 g/dL (3.4-4.8); Alkaline Phosphatase 93 U/L (40-110); Anion Gap 19 mmol/L (10-20); BUN (Urea Nitrogen) 27 mg/dL (9.8-20.1); Bilirubin, Total 0.4 mg/dL (0.2-1.2); Calc. Creatinine Clearance 0 mL/min (70-130); Carbon Dioxide 19 mmol/L (23-31); Chloride 102 mmol/L (98-107); Glucose 82 mg/dL (83-110); Potassium 4.2 mmol/L (3.5-5.1); Protein, Total 6.3 g/dL (5.8-8.1); Sodium 136 mmol/L (136-145)
[2021-07-05] MEDS ORDERED: Lactated Ringer's 1,000 ML ONE (18:14)
[2021-07-05] MEDS ORDERED: Albuterol Sulfate 2.5 mg/0.5 ml Neb ONE (18:15)
[2021-07-05 18:53] LABS: SARS-CoV-2 NAA Rapid Test Not Detected (NotDetected)
[2021-07-05] MEDS ORDERED: Sodium Chloride 0.9% 250 ML 250 ML ONE (19:46)
[2021-07-05] MEDS ORDERED: Azithromycin 500 MG VIAL ONE (19:46)
[2021-07-05] MEDS ORDERED: Ibuprofen 600 MG TAB ONE (22:16)
== END 2021-07-05 23:30 | disposition short-term general hospital (02) ==
LOC: MADERS 16:46
DX: J44.1 Chronic obstructive pulmonary disease with (acute) exacerbation (principal); D72.829 Elevated white blood cell count, unspecified; R00.0 Tachycardia, unspecified; R79.89 Other specified abnormal findings of blood chemistry; Z20.822 Contact with and (suspected) exposure to COVID-19; I25.2 Old myocardial infarction; Z87.891 Personal history of nicotine dependence; Z79.899 Other long term (current) drug therapy
CPT/HCPCS: 0240U; 71045; 80053; 83605; 84484; 85025; 85379; 93005; 94760; 36415; 96365; 96375; J0456; J2930; J7050; J7120; J7611; J7620

== ENCOUNTER 2021-10-30 09:17 | Emergency (ER) | payer MEDICARE, OTHER ==
[2021-10-30] MEDS ORDERED: Amoxicillin/Potassium Clav 875 MG TAB ONE (09:42)
[2021-10-30] MEDS ORDERED: Bacitracin 1 PK ONE (09:43)
== END 2021-10-30 10:00 | disposition home or self-care (01) ==
LOC: MADERS 09:17
DX: S61.412A Laceration without foreign body of left hand, initial encounter (principal); S61.551A Open bite of right wrist, initial encounter; I25.2 Old myocardial infarction; J44.9 Chronic obstructive pulmonary disease, unspecified; W54.0XXA Bitten by dog, initial encounter; Z95.5 Presence of coronary angioplasty implant and graft; Z87.891 Personal history of nicotine dependence
CPT/HCPCS: 99283

== ENCOUNTER 2021-11-08 14:36 | Emergency (ER) | payer MEDICARE, OTHER | END 2021-11-08 16:20 | disposition home or self-care (01) | LOC: MADERS 14:36 | DX: Z00.00 Encounter for general adult medical examination without abnormal findings (principal); I25.2 Old myocardial infarction; J44.9 Chronic obstructive pulmonary disease, unspecified; Z79.51 Long term (current) use of inhaled steroids; Z79.899 Other long term (current) drug therapy; Z87.891 Personal history of nicotine dependence; Z87.898 Personal history of other specified conditions | CPT/HCPCS: 99283 ==